=== PATIENT | male | born 1950 | race Two or more races ===

== ENCOUNTER 2021-05-13 05:05 | Day surgery (SDC) | payer OTHER ==
[~2021-05-13 05:05] MED LIST: FOLIC ACID0.8 M1 PO; LEVO-T112 MCG PO; ZESTRIL20 MG PO
[2021-05-13] MEDS ORDERED: PERCOCET 5-3251 EACH PO (08:31)
[2021-05-13] MEDS ORDERED: RECTICARE30 GM TOP (08:32)
== END 2021-05-13 16:15 | disposition home or self-care (01) ==
LOC: CIR.AMB 05:05
PROVIDERS: ATTEND Surgery
DX: C21.1 Malignant neoplasm of anal canal (principal); K62.6 Ulcer of anus and rectum; Z20.822 Contact with and (suspected) exposure to COVID-19